=== PATIENT | male | born 1985 | race Two or more races ===

== ENCOUNTER 2023-04-24 18:15 | Outpatient (REF) | payer MEDICAID, SELFPAY ==
[2023-04-25 10:48] LABS: CT PCR NOT DETECTED (Not Detect.); NG PCR NOT DETECTED (Not Detect.)
== END 2023-04-24 18:16 | disposition home or self-care (01) ==
LOC: HO.HHCLNP 18:15
PROVIDERS: Visit Provider Emergency Medicine
DX: R30.0 Dysuria (principal)
CPT/HCPCS: 0353U; 87086

== ENCOUNTER 2023-06-07 09:47 | Outpatient (REF) | payer MEDICAID, SELFPAY ==
[2023-06-07 12:11] LABS: Cholesterol 115 mg/dL (<200); HDL Cholesterol 29 mg/dL (>40); LDL Cholesterol Calculated 70 mg/dL (<100); Triglycerides 84 mg/dL (<150)
[2023-06-07 12:20] LABS: Estimated Average Glucose 108 mg/dL; Hemoglobin A1c % 5.4 % (<6.0)
[2023-06-07 12:27] LABS: HBS Num1 0.28 mIU/mL (0-7.99); HBc Num1 0.09 S/CO (0.00-0.79); HBsAGNum1 0.49 S/CO (0.00-0.99); HIV AB/AG Nonreactive (Nonreactive); HIV Num 1 0.06 S/CO (0.00-0.99); Hepatitis A Antibody IgM 0.41 Index (0-0.79); Hepatitis B Core Antibody Nonreactive (Nonreactive); Hepatitis B Surface Antigen Negative (Negative); ~HepC Num1 0.13 S/CO (0.00-0.79); ~Hepatitis A Antibody IgM Nonreactive (Nonreactive); ~Hepatitis B Surface Antibody NONREACTIVE (Nonreactive); ~Hepatitis C Antibody Nonreactive (Nonreactive)
[2023-06-08 15:47] LABS: RPR Rapid Plasma Reagin NON-REACTIVE (NON-REACTIVE)
[2023-06-08 22:08] LABS: Trichomonas vag. RNA Ur Male NOT DETECTED (NOT DETECTED)
== END 2023-06-07 09:48 | disposition home or self-care (01) ==
LOC: HO.HHCL 09:47
PROVIDERS: Referring Provider Emergency Medicine; Visit Provider Nurse Practitioner
DX: E66.9 Obesity, unspecified (principal); R30.0 Dysuria; Z11.3 Encounter for screening for infections with a predominantly sexual mode of transmission
CPT/HCPCS: 36415; 80061; 83036; 86592; 86704; 86706; 86709; 86803; 87340; 87389; 87661

== ENCOUNTER 2023-07-11 13:03 | Outpatient (AMB) | payer MEDICAID, SELFPAY ==
--- NOTE | 2023-07-11 13:42 | A.OFFVIS_ITS ---
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 He was referred here for abnormal heart sounds. He has no cardiovascular symptoms. He does not exercise regularly but is busy doing hard work and taking care of his family. He is never any prior cardiovascular issues. Has never had any prior murmurs to his recollection. He currently has no ongoing chronic medical issues. Currently does not take any medications. [facility], [facility] Family History Father No problems noted. Mother No problems noted. Social History Patient Tobacco Use Status: Never used Tobacco Review of Systems Const Denies chills, Denies daytime sleepiness, Denies fatigue, Denies fever(s), Denies frequent falls, Denies poor appetite, Denies snoring, Denies stops breathing during sleep, Denies weakness, Denies weight gain and Denies weight loss Eyes Denies loss of vision ENT Denies dizziness and Denies hearing loss Card Denies chest pain, Denies claudication, Denies leg edema, Denies lightheadedness, Denies palpitations, Denies dyspnea, Denies dyspnea on exertion and Denies orthopnea Resp Denies cough, Denies excessive phlegm production, Denies dyspnea, Denies dyspnea on exertion, Denies snoring and Denies wheezing GI Denies abdominal pain, Denies hematochezia, Denies change in bowel habits, Denies nausea and Denies vomiting Denies dysuria and Denies urinary frequency Musc Denies arthralgias, Denies muscle weakness, Denies numbness and Denies other (frequent falls) Skin/Breast Denies nail changes and Denies rash Neuro Denies Abnormal speech present, Denies dizziness, Denies frequent falls, Denies loss of vision, Denies memory loss, Denies numbness and Denies weakness Psych Denies depression and Denies memory loss Endo Denies fatigue and Denies palpitations Rodrigo/Lymph Reports easy bruising and Reports other (anemia) Aller/Immun Denies wheezing Physical Exam Vital Signs: Last Vital Signs Pulse 88 07/11/23 13:50 BP 122/80 07/11/23 13:50 BMI result Body Mass Index 29.2 Const General: cooperative, comfortable, no acute distress, alert and awake Nutritional Appearance: average body habitus Orientation/consciousness: patient oriented x3 Limitations: no limitations HEENT Head: Yes normocephalic Neck Neck: Yes trachea midline, Yes supple and Yes no JVD Resp Effort & Inspection: normal respiratory effort Auscultation: clear to auscultation bilaterally Cardio Jugular venous distension: no JVD Palpation: normal PMI Rate: regular rate Rhythm: regular rhythm Heart sounds: S1 normal heart sound present, S2 normal heart sound present, no click, no gallops, no murmurs and no rubs GI Auscultation: normal bowel sounds Skin General skin exam: no rashes or lesions noted Neuro General: patient oriented x3 and no focal motor deficits Speech: No Abnormal speech present Extrem General: Yes no clubbing, cyanosis or edema Office Procedures EKG Details: EKG shows normal sinus rhythm normal EKG 35035-Riyofkegubgstdoga, Complete Assessment & Plan Assessment & Plan (1) Abnormal heart sounds: Code(s): R01.2 - Other cardiac sounds Plan: Completely asymptomatic young man with high workload with normal EKG was thought to have abnormal heart tones. On physical exam today I do not hear any significant abnormality. At this point time I do not think any further workup is indicated at this point time. I discussed with the patient about benign c ardiac exam. He was quite happy to hear that. If there any symptoms in future can pursue echocardiogram. Will follow up if need be Coding Level of Care Code New Pt Level 3 (25487) Diagnoses Abnormal heart sounds R01.2 CPT Codes EKG - CPT: 12499-Ngvzaksmanfsnkkbo, Complete ([id number])
[2023-07-11 13:50] VITALS: BP 122/80; PULSE 88; BMI 29.2
== END 2023-07-11 14:11 | disposition home or self-care (01) ==
PROVIDERS: PCP Emergency Medicine; Referring Provider Emergency Medicine; Visit Provider Internal Medicine Cardiovascular Disease
DX: R01.2 Other cardiac sounds (principal)
CPT/HCPCS: 93010; 99203

== ENCOUNTER → 2023-07-11 13:03 | Outpatient (BNVA) | payer MEDICAID, SELFPAY | PROVIDERS: PCP Emergency Medicine; Visit Provider Internal Medicine Cardiovascular Disease | DX: R01.2 Other cardiac sounds (principal) | CPT/HCPCS: 93005; 99202 ==

== ENCOUNTER 2023-10-11 09:50 | Outpatient (REF) | payer MEDICAID, SELFPAY ==
[2023-10-11 11:47] LABS: Estimated Average Glucose 114 mg/dL; Hemoglobin A1c % 5.6 % (<6.0)
[2023-10-11 12:29] LABS: Anion Gap 11 (12-20); Blood Urea Nitrogen 12 mg/dL (9-16); Calcium 9.2 mg/dL (8.4-10.2); Carbon Dioxide 26 mmol/L (22-29); Chloride 106 mmol/L (96-108); Cholesterol 152 mg/dL (<200); Estimated Glomerular Filt Rate > 60; Glucose Random 104 mg/dL (60-115); HDL Cholesterol 40 mg/dL (>40); LDL Cholesterol Calculated 97 mg/dL (<100); Potassium 4.1 mmol/L (3.3-5.1); Sodium 139 mmol/L (135-145); Triglycerides 78 mg/dL (<150)
[2023-10-11 12:46] LABS: TSH reflex Free T4 0.58 uIU/mL (0.32-4.0)
== END 2023-10-11 09:51 | disposition home or self-care (01) ==
LOC: HO.HHCL 09:50
PROVIDERS: Visit Provider Nurse Practitioner
DX: E66.9 Obesity, unspecified (principal)
CPT/HCPCS: 36415; 80048; 80061; 83036; 84443

== ENCOUNTER 2024-06-02 18:04 | Emergency (ER) | payer MEDICAID, SELFPAY ==
[2024-06-02 18:19] VITALS: BP 142/83; PULSE 80; RESP 19; TEMP 36.6; O2SAT 99; BMI 30.6
--- NOTE | 2024-06-02 18:22 | ED_ITS ---
HPI - Ear Problem General Chief complaint: Ear Problems Stated complaint: Right ear and neck pain Time Seen by Provider: 06/02/24 18:22 Source: patient Mode of arrival: ambulatory Limitations: no limitations History of Present Illness ED Provider: terri PADILLA Narrative: Patient is a 38-year-old male presenting to the ED with complaint of right ear pain for the past 3 days. Denies fevers. Denies discharge or drainage. Denies other symptoms. Complaint: ear pain Location: right ear Duration: constant Severity: severe Relieving factors: nothing Treatment prior to arrival: none Related Data Previous Rx's ?Medication ?Instructions ?Recorded amoxicillin 875 mg tablet 875 mg PO BID #14 tabs 06/02/24 Allergies Allergy/AdvReac Type Severity Reaction Status Date / Time No Known Allergies Allergy Verified 06/02/24 18:20 Review of Systems Review of Systems: As per HPI Yes all other systems are reviewed and are negative Constitutional: Constitutional: Reports as per HPI [facility] Family History Family History Father No problems noted. Mother No problems noted. Social History Social History Patient Tobacco Use Status: Never used Tobacco Physical Exam Vital Signs: Vital Signs: Last Vital Signs Temp 98 F 06/02/24 18:19 Pulse 80 06/02/24 18:19 Resp 19 06/02/24 18:19 BP 142/83 H 06/02/24 18:19 Pulse Ox 99 06/02/24 18:19 O2 Del Method Room Air 06/02/24 18:19 BMI result Body Mass Index 30.6 Vital signs have been reviewed and appear to be correct. Blood pressure normal. Heart rate normal. Respiratory rate normal. Temperature normal. Oxygen satur ation normal. Const: General: cooperative, healthy appearing and no acute distress Orientation/consciousness: oriented to person, oriented to place, oriented to time and patient oriented x3 Limitations: no limitations HEENT: Head: Yes normocephalic and Yes atraumatic Ears: external ears normal, mastoids normal bilaterally, no periauricular adenopathy and TM abnormal bulging on the right, erythematous bilateral and with fluid behind the TM on the right General nose exam: Normal external nose present Face and sinus: Yes face symmetric Mouth: oropharynx normal and moist mucous membranes Throat: Yes uvula midline Eyes: Pupils: Equal, round and reactive pupils present Neck: Neck: Yes normal visual inspection and Yes supple Resp: Effort & Inspection: normal respiratory effort and able to speak in complete sentences Auscultation: clear to auscultation bilaterally Cardio: Rate: regular rate Rhythm: regular rhythm Heart sounds: S1 normal heart sound present and S2 normal heart sound present GI: Palpation (GI): Soft to palpation and nontender Auscultation: normoactive bowel sounds : General: Yes no CVA tenderness Back/Spine/Pelvis: Back: no CVA tenderness Skin: General skin exam: elasticity normal and turgor normal Neuro: General: oriented to person, oriented to place, oriented to time, patient oriented x3, moves all extremities, no focal motor deficits and CN's II- XI intact bilaterally Cranial nerves: Yes Equal, round and reactive pupils present Cognition (Neuro): normal cognition Extrem: General: Yes full ROM, Yes no pedal edema and Yes no calf tenderness Psych: Mental Status: mental status grossly normal Affect: normal affect Thought process: Normal thought process present Medical Decision Making Medical Decision Making [facility] Narrative: Patient is a 38-year-old male presenting to the ED with complaint of right ear pain for the past 3 days. On exam patient is awake, A+Ox3, VS WNL, afebrile, normal neurological exam without focal deficits, physical exam findings as above. Given reported symptoms and physical exam findings, initial differential includes but is not limited to otitis media, otitis externa, cerumen impaction. Physical exam findings consistent with AOM, will treat with amoxicillin. Return precautions discussed. Patient verbalized understanding of and agreement with plan. Differential Diagnosis Differential Diagnoses: The differential diagnosis associated with the presentation includes As per [facility] External Record Review External record reviewed: Inpatient record, Office record and Outpatient record Prescription Management I considered prescription management with: Antibiotic Discharge Plan Discharge Clinical Impression: Otitis media Patient Disposition: Home, Self-Care Instructions: Ear Infection (ED) Additional Instructions: You were evaluated in the emergency department today for ear pain. Your evaluation suggests that your pain is due to an ear infection. Please take your prescribed antibiotics as directed for the full course of the medication. Please follow up with your primary care provider within two days. Return to the emergency department if you experience hearing loss, discharge from your ear, headaches, fevers, recurrent vomiting, or any other concerning symptoms. Prescriptions: New amoxicillin 875 mg tablet 875 mg PO BID Qty: 14 0RF Print Language: Amharic
[2024-06-02 18:26] VITALS: BP 142/83; PULSE 80; RESP 19; TEMP 36.6; O2SAT 99
== END 2024-06-02 18:27 | disposition home or self-care (01) ==
PROVIDERS: Emergency Provider Emergency Medicine Emergency Medical Services
DX: H66.91 Otitis media, unspecified, right ear (principal); H92.01 Otalgia, right ear; M54.2 Cervicalgia
CPT/HCPCS: 99282

== ENCOUNTER 2024-11-19 09:31 | Outpatient (REF) | payer MEDICAID, SELFPAY ==
--- OUTSIDE RECORDS SUMMARY | 2024-11-19 10:30 | XMS_ITS | Encounter Summary ---
Author Organization [employer] Address [address] [place] [address] Care Team Providers Care Southeast Regional Sales Manager Name Role Phone Maria Victoria Sprague NP Primary Care Provider [phone] Encounter Details Date Type Department Care Team ([facility] st Contact Info) Description 04/24/2023 9:40 AM EST Office Visit [facility] [address] [place] [address] Greyson Slaughter MD [address] [place] [address] Rash (Primary Dx); Dysuria; Heart sounds, abnormal; Elevated blood pressure reading in office without diagnosis of hypertension Social History Tobacco Use Types Packs/Day Years Used Date Smoking Tobacco: Never Passive Smoke Exposure: Never Smokeless Tobacco: Never Tobacco Cessation:Counseling Given: Not Answered Depression Answer Date Recorded Patient Health Questionnaire-9 Score 0 06/07/2023 Patient Health Questionnaire-9 Score 0 06/07/2023 Last PHQ-9: Questionnaire Data Not on file 1 08/08/2022 Housing Stability Answer Date Recorded What is your housing situation today? I have eitan castillo 05/29/[address] you li ve. Do you have problems with any of the following? None of the above 05/29/2023 Food Insecurity Answer Date Recorded Within the past 12 months, y ou worried that your food would run out before you got money to buy more: Never True 05/29/2023 Within the past 12 months,th e food you bought just didn't last and you didn't have enough money to get more: Never True Transportation Answer Date Recorded In the past 12 months, has l ack of transportation kept you from medical appts, meetings, work or from getting things needed for daily living? No 05/29/2023 Utilities Answer Date Recorded In the past 12 months, has t he electric, gas, oil or water company threatened to shut off services in your home? No 05/29/2023 Depression Answer Date Recorded Patient Health Questionnaire-2 Score 0 06/07/2023 Sex and Gender Information Value Date Recorded Sex Assigned at Male 04/24/2023 9:34 AM EST Legal Sex Male 1:40 PM EST Gender Identity Male 04/24/2023 9:34 AM EST Sexual Orientation Straight 04/24/2023 9: 34 AM EST documented as of this encounter Last Filed Vital Signs Vital Sign Reading Time Taken Comments Blood Pressure 149/89 04/24/2023 10:14 AM EST Pulse 74 04/24/2023 10:14 AM EST Temperature 36.8 ??C (98.3 ??F) 04/24/2023 10:[address] Respiratory Rate 20 04/24/2023 10:14 AM EST Oxygen Saturation 99% 04/24/2023 10:14 AM EST Inhaled Oxygen Concentration - - Weight 112 kg (247 lb 3.2 oz) 04/24/2023 10:14 A M EST Height 193 cm (6' 4 ) 04/24/2023 10:14 AM EST Body Mass Index 30.09 04/24/2023 10:14 AM EST documented in this encounter Functional Status * Over the past 2 weeks, how often have you been bothered by any of the following problems? Question Answer Date of Assessment Author Patient Health Questionnaire-2 Score 0 05/13 9:12 AM Zacarias Macdonald [place] * Over the last 2 weeks, how often have you been bothered by any of the following problems? Question Answer Date of Assessment Author Feeling nervous, anxious, or on edge 0 05/13 9:12 AM Zacarias Macdonald MA Not being able to stop or co ntrol worrying 0 06/07/2023 9:12 AM Zacarias Macdonald M A Worrying too much about diff erent things 0 06/07/2023 9:12 AM Zacarias Macdonald M A Trouble relaxing 0 06/07/2023 9:12 AM Zacarias Contreras MA Being so restless that it is hard to sit still 0 06/07/2023 9:12 AM Zacarias Macdonald M A Becoming easily annoyed or irritable 0 05/13 9:12 AM Zacarias Macdonald MA Feeling afraid as if somethi ng awful might happen 0 06/07/2023 9:12 AM Zacarias Macdonald M A DAMIAN-7 Total Score 0 06/07/2023 9:12 AM Zacarias Macdonald MA * Over the past 2 weeks, how often have you been bothered by any of the following problems? Question Answer Date of Assessment Author Little interest or pleasure in doing things Not at all 06/07/2023 9:12 AM Zacarias Macdonald M A Feeling down, depressed, or hopeless Not at all 06/07/2023 9:12 AM Zacarias Macdonald M A Trouble falling or staying asleep, or sleeping too much Not at all 06/07/2023 9:12 AM Zacarias Macdonald MA Feeling tired or having pierre le energy Not at all 06/07/2023 9:12 AM Zacarias Macdonald M A Poor appetite or overeating Not at all 06/07/2023 9: 12 AM Zacarias Macdonald MA Feeling bad about yourself - or that you are a failure or have let yourself or your family down Not at all 06/07/2023 9:12 AM Zacarias Ahumada ra, [place] Trouble concentrating on thi ngs, such as reading the newspaper or watching television Not at all 06/07/2023 9:12 AM Zacarias Macdonald M A Moving or speaking so slowly that other people could have noticed? Or the opposite - being so fidgety or restless that you have been moving around a lot more than usual. Not at all 06/07/2023 9:12 AM Zacarias Macdonald M A Thoughts that you would be better off or hurting yourself in some way Not at all 06/07/2023 9:12 AM Zacarias Macdonald MA Patient Health Questionnaire -9 Score 0 06/07/2023 9:12 AM EST Zacarias Grant M A documented as of this encounter Progress Notes * Greyson Slaughter MD - 04/24/2023 9:40 AM EST Subjective Patient ID: Primitivo Ortez is a 37 y.o. male, new patient. Last saw PCP 10 years ago in [place]. Moved here from [place] 7 years ago. HPI Has 4 month h/o itchy rash on left buttock. No drainage. Denies SOB, swelling, sensation of throat tightness, new medications, soap, shampoo, detergent, or deodorant. Denies tick bite, or known contacts who have a rash. Has been using OTC clotrimazole cream with no improvement. States has similar rash about 10 years ago in [place], resolved with pills and cream. Also has 5 day h/o burning on urination, urgency. Denies fever, chills, urethral discharge, n/v, abdominal or flank pain. Circumcised. Past med hx: neg Past surgical hx: neg Family hx: neg Lives with , 3 y.o. son, 3 month old daughter. Never Smoked No EtOH. No Illicit substances. 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 The following portions of the chart were reviewed this encounter and updated as appropriate: Meds Problems Med Hx Surg Hx Fam Hx Review of Systems Constitutional: Negative for fever. Respiratory: Negative for shortness of breath. Cardiovascular: Negative for chest pain. Gastrointestinal: Negative for abdominal pain. Genitourinary: Positive for dysuria and urgency. Negative for flank pain, hematuria, penile discharge, scrotal swelling and testicular pain. Skin: Positive for rash. Neurological: Negative for headaches. Objective Physical Exam Constitutional: Appearance: Normal appearance. HENT: Right Ear: Tympanic membrane, ear canal and external ear normal. Left Ear: Tympanic membrane, ear canal and external ear normal. Nose: Nose normal. Mouth/Throat: Mouth: Mucous membranes are moist. Pharynx: Oropharynx is clear. Eyes: Conjunctiva/sclera: Conjunctivae normal. Pupils: Pupils are equal, round, and reactive to light. Cardiovascular: Rate and Rhythm: Normal rate and regular rhythm. Heart sounds: S1 normal. No murmur heard. Comments: ?wide splitting of S2 Pulmonary: Effort: Pulmonary effort is normal. Breath sounds: Normal breath sounds. Musculoskeletal: General: Normal range of motion. Cervical back: No tenderness. Skin: Findings: No rash. Comments: Right buttock: several irreg patches of scaly, dry skin, some smaller areas with hyperpigmentation, No redness. Neurological: Mental Status: He is alert. Gait: Gait is intact. Psychiatric: Mood and Affect: Mood normal. Behavior: Behavior normal. Procedures Assessment/Plan Diagnoses and all orders for this visit: Rash ?etioilogy. Prescribed miconazole cream and triamcinolone acetonide 0.1 % cream. Referred ro [facility] Derm/skin Dysuria U/a normal. Urine C&S, CT/GC, tich pending. Will call pt with results. If all neg and he is still symptomatic, will refer to Urology. - Chlamydia/N. Gonorrhoeae RNA, TMA, Urogenitial; Future - Trichomonas vaginalis RNA, Qualitative, TMA, Males; Future - Culture, Urine, Routine - POCT urinalysis dipstick manually resulted Heart sounds, abnormal Referred to Cardiology. Elevated blood pressure reading in office without diagnosis of hypertension Prescribed home BP monitor. Reviewed BP parameters, given written BP log that includes BP parameters, to keep daily. Call if BP readings are elevated. Other orders - miconazole (Micatin) 2 % cream; Apply to affected area 2 times daily - triamcinolone (Kenalog) 0.1 % cream; Apply topically 2 times daily. - Blood Pressure kit; 1 each 2 times daily. documented in this encounter Plan of Treatment Upcoming Encounters Date Type Department Care Team (Late st Contact Info) Description 12/16/2024 3:30 PM EDT Office Visit [facility] [address] [place] [address] Jairon Stuart, DDS [address] [place] [address] 03/31/2025 10:00 AM EDT Office Visit [facility] [address] [place] [address] Yimi Lindo documented as of this encounter Procedures Procedure Name Priority Date/Time Associated Diagnosis Comments TRICHOMONAS BY TMA (MALES) Routine 06/07/2023 9:56 AM EST Dysuria POCT URINALYSIS DIPSTICK Routine 04/24/2023 11:06 AM EST Dysuria CHLAMYDIA/N. GONORRHOEAE RNA, TMA, UROGENITAL Routine 04/24/2023 12:00 AM EST Dysuria CULTURE, URINE, ROUTINE Routine 04/24/2023 12:00 AM EST Dysuria documented in this encounter Results * Trichomonas vaginalis RNA, Qualitative, TMA, Males (06/07/2023 9:56 AM EST) Trichomonas vaginalis RNA Qualitative TMA, Males NOT DETECTED NOT DETECTED [facility] Comment:The analytical perfo rmance characteristics of thisassay have been determined by [employer]. Themodifications have not been cleared or approved bythe FDA. This assay has been validated pursuant to theCLIA regulations and is used for clinical purposes.For additional information, please refer tohttp://education.BringMeTheNews/faq/Trichomonastma(This link is being provided for informational/educational purposes only.)THIS TEST WAS PERFORMED AT:[facility] [place] [phone] COKER MD 06/07/2023 9:56 AM EST 06/07/2023 11:21 AM EST us Greyson Slaughter MD LAB URINE ORDERABLES Final Resul t [facility] [address] [place] [phone] * POCT urinalysis dipstick manually resulted (04/24/2023 11:06 AM EST) Color, UA Yellow Clarity, UA Clear Glucose, UA Negative Bilirubin, UA Negative Ketones, UA Negative Spec Grav, UA 1.030 Blood, UA Negative Negative, None Detected pH, UA 5.5 Protein, UA Trace Urobilinogen, UA 0.2 Leukocytes, UA Negative Negative, Rare, Trace Nitrite, UA Negative Negative, None Detected Appearance, UA Clear Urine 04/24/2023 11:0 6 AM EST us Greyson Slaughter MD POINT OF CARE TEST ENTER/EDIT OR DERABLES Final Result * Culture, Urine, Routine (04/24/2023 12:00 AM EST) Urine Urine specimen obtained by clean catch procedure / Unknown 04/24/2023 04/24/2023 Comment:UACC Narrative [facility] - 04/26/2023 9:21 AM EST Urine Culture No growth. Specimen Source: Urine clean catch us Greyson Slaughter MD LAB MICROBIOLOGY - GENERAL ORDER HELEN Final Result [facility] [address] [place] [phone] * Chlamydia/N. Gonorrhoeae RNA, TMA, Urogenitial (04/24/2023 12:00 AM EST) CT PCR NOT DETECTED Not Detect. [facility] Comment:A not detected test result does not exclude the possibilityof infection because test results can be affected byimproper specimen collection, concurrent antibiotic therapy,or the number of organisms in the specimen which may bebelow the sensitivity of the test. As with many diagnostictests, results from the Xpert CT/NG assay should beinterpreted in conjunction with other laboratory andclinical data available to the clinician.Xpert CT/NG performance has not been evaluated in patientsless than 14 years of age. The assay should not be used forthe evaluationof suspected sexual abuse or for other medico-legalindications. Additional testing is recommended in anycircumstance when false positive or false negative resultscould lead to adverse medical, social or psychologicalconsequences. NG PCR NOT DETECTED Not Detect. [facility] Comment:A not detected test result does not exclude the possibilityof infection because test results can be affected byimproper specimen collection, concurrent antibiotic therapy,or the number of organisms in the specimen which may bebelow the sensitivity of the test. As with many diagnostictests, results from the Xpert CT/NG assay should beinterpreted in conjunction with other laboratory andclinical data available to the clinician.Xpert CT/NG performance has not been evaluated in patientsless than 14 years of age. The assay should not be used forthe evaluationof suspected sexual abuse or for other medico-legalindications. Additional testing is recommended in anycircumstance when false positive or false negative resultscould lead to adverse medical, social or psychologicalconsequences. Urine, Random 04/24/2023 04/24/2023 Narrative [facility] - 04/25/2023 10:48 AM EST Urine us Greyson Slaughter MD LAB MICROBIOLOGY - GENERAL ORDER HELEN Final Result [facility] [address] [place] [phone] documented in this encounter Visit Diagnoses Diagnosis Rash- Primary Rash and other nonspecific skin eruption Dysuria Heart sounds, abnormal Other abnormal heart sounds Elevated blood pressure reading in office without diagnosis of hypertension documented in this encounter Care Teams Southeast Regional Sales Manager Relationship Specialty Start Date End Date Maria Victoria Sprague NP [address] [place] [phone] PCP - General Family Medicine 06/07/23 documented as of this encounter
[2024-11-19 11:20] LABS: MANUAL DIFF FLAG NO
[2024-11-19 11:25] LABS: Basophils Percent Auto 0.4 % (0-2); Eosinophils Absolute Auto 0.2 X10*3/uL (0.0-0.4); Hematocrit 45.8 % (42.0-52.0); Hemoglobin 15.1 g/dl (14.0-18.0); Imm Gran Abs Auto 0.02 X10*3/uL (0.00-0.03); Imm Gran Pct Auto 0.4 % (0.0-0.4); Lymphocytes Absolute Auto 1.7 X10*3/uL (1.2-4.9); Lymphocytes Percent Auto 31.1 % (20-40); Mean Corpuscular Hemoglobin 28.9 pg (27.0-33.0); Mean Corpuscular Volume 87.7 fL (80.0-98.0); Mean Platelet Volume 11.8 fL (9.4-12.4); Monocytes Absolute Auto 0.4 X10*3/uL (0.1-1.2); Monocytes Percent Auto 7.5 % (2-11); Neutrophils Percent Auto 56.6 % (45-73); Platelet Count 124 X10*3/uL (160-400); Red Blood Count 5.22 X10*6/uL (4.60-5.80); Red Cell Distribution Width 12.1 % (11.0-16.0); White Blood Count 5.3 X10*3/uL (4.8-10.8)
[2024-11-19 11:34] LABS: Estimated Average Glucose 114 mg/dL; Hemoglobin A1C 149.8256 umol/L; Hemoglobin A1c % 5.6 % (<6.0)
[2024-11-19 11:49] LABS: Anion Gap 8 (12-20); Blood Urea Nitrogen 12 mg/dL (9-16); Calcium 9.1 mg/dL (8.4-10.2); Carbon Dioxide 30 mmol/L (22-29); Chloride 106 mmol/L (96-108); Estimated Glomerular Filt Rate > 60; Glucose Random 106 mg/dL (60-115); Potassium 4.5 mmol/L (3.3-5.1); Sodium 139 mmol/L (135-145)
[2024-11-19 12:22] LABS: Vitamin B12 992 pg/mL (200-900)
[2024-11-22 09:34] LABS: RPR Rapid Plasma Reagin NON-REACTIVE (NON-REACTIVE)
== END 2024-11-19 09:32 | disposition home or self-care (01) ==
LOC: HO.HHCL 09:31
PROVIDERS: Visit Provider Emergency Medicine
DX: R21 Rash and other nonspecific skin eruption (principal)
CPT/HCPCS: 36415; 80048; 82607; 83036; 85025; 86592

== ENCOUNTER 2024-12-14 11:02 | Emergency (ER) | payer MEDICAID, SELFPAY ==
--- NOTE | ~2024-12-14 | CT_ITS ---
CLINICAL HISTORY: RLQ tenderness CT abdomen and pelvis with contrast Comparison: None provided Findings: The lung bases are clear. The liver, gallbladder, spleen, splenule, adrenal glands and pancreas are unremarkable. Kidneys, ureters and bladder are within normal limits. Small benign renal cysts are present. The appendix is normal. No bowel obstruction, free air, free fluid or abscess. Mild fecal retention. No acute osseous finding. Impression: Normal appendix. No definite acute process. This document has been electronically signed by: David Styles MD on 12/14/2024 13:45:43
[2024-12-14 11:15] VITALS: BP 129/80; PULSE 73; RESP 18; TEMP 36.8; O2SAT 99
[2024-12-14 11:23] VITALS: BP 108/68; PULSE 82; RESP 16; TEMP 36.8; O2SAT 97
[2024-12-14 11:39] VITALS: BP 103/71; PULSE 76; RESP 16; TEMP 36.6; O2SAT 98; BMI 30.2
--- NOTE | 2024-12-14 11:59 | ED_ITS ---
HPI - General Adult General Chief complaint: Abdominal Pain Stated complaint: abd pain Time Seen by Provider: 12/14/24 11:57 Source: patient, RN notes reviewed and old records reviewed Mode of arrival: ambulatory Limitations: no limitations History of Present Illness ED Provider: Eamon PADILLA narrative: Patient is a 39-year-old male presenting to the emergency department with complaint of generalized abdominal pain. States that on Monday he developed diarrhea which resolved after using Pepto-Bismol. Denies any vomiting but does report some nausea. Denies fevers, chills, body aches, known sick contacts. Denies hematemesis, hematochezia or melena. Denies dysuria, frequency, hematuria or other urinary symptoms. Has not eaten since 3pm yesterday. Declining pain or nausea medication on initial assessment. MD complaint: abdominal pain Onset (ago): day(s) Related Data Previous Rx's ?Medication ?Instructions ?Recorded amoxicillin 875 mg tablet 875 mg PO BID #14 tabs 06/02 ondansetron 4 mg disintegrating 4 mg PO Q8H PRN nausea and 12/14/24 tablet vomiting #10 tabs Allergies Allergy/AdvReac Type Severity Reaction Status Date / Time No Known Allergies Allergy Verified 12/14/24 11:17 Review of Systems 2 Review of Systems: As per HPI Yes all other systems are reviewed and are negative [facility] Family History Family History Father No problems noted. Mother No problems noted. Social History Social History Patient Tobacco Use Status: Never used Tobacco Smoked in Last 30 Days: No Use of substances other than those prescribed or required for medical reasons: No Advance Directives: No Advance Directives Information Provided: No Physical Exam ED Vital Signs: Vital Signs - 24 hr 12/14/24 11:15 12/14/24 11:23 12/14/24 11:39 Temperature 98.3 F 98.2 F 97.8 F Pulse Rate 73 82 76 Respiratory Rate 18 16 16 Blood Pressure 129/80 108/68 103/71 Pulse Oximetry 99 97 98 Oxygen Delivery Method Room Air Room Air Room Air BMI result Body Mass Index 30.2 Medications Administered Discontinued Medications Generic Name Dose Route Start Last Admin Trade Name Freq PRN Reason Stop Dose Admin Iohexol 85 ml 12/14/24 12:54 12/14/24 12:54 Iohexol 350 Mg/Ml 100 Ml Infus..Btl IV 12/14/24 12:55 85 ml ONCE ONE Administration Medical Decision Making Medical Decision Making [facility] Narrative: Patient is a 39-year-old male presenting to the emergency department with complaint of generalized abdominal pain. On exam patient is awake, A+Ox3, VS WNL, afebrile, normal neurological exam without focal deficits, physical exam findings as above. Given reported symptoms and physical exam findings, initial differential includes but is not limited to gastroenteritis, appendicitis, electrolyte abnormality, UTI. Labs unremarkable. UA is without evidence of infection. CT A/P notable for no appendicitis, obstruction, abscess. My interpretation is in agreement with the radiologist's interpretation. Results discussed with patient and all questions answered. Symptoms likely due to inflammation from recent gastroenteritis. Will send prescription for zofran. Advised follow up with PCP. Return precautions discussed. Patient verbalized understanding of and agreement with plan. Differential Diagnosis Differential Diagnoses: The differential diagnosis associated with the presentation includes as per [facility] Admission/Observation Consideration of admission/observation: Escalation of care including admission/observation considered Patient would have been admitted to the hospital had their work up had any findings where hospital admission was appropriate and their clinical presentation warranted hospital admission. Lab Data [facility] Lab Attestation statement: I reviewed the patient's lab results. as per [facility] 12/14/24 12:25 12/14/24 12:25 Labs: Lab Results 12/14/24 Range/Units 12:25 WBC 5.2 (4.8-10.8) X10*3/uL RBC 5.20 (4.60-5.80) X10*6/uL Hgb 15.4 (14.0-18.0) g/dl Hct 44.3 (42.0-52.0) % MCV 85.2 (80.0-98.0) fL MCH 29.6 (27.0-33.0) pg MCHC 34.8 (31.0-36.0) g/dl RDW 12.2 (11.0-16.0) % Plt Count 123 L (160-400) X10*3/uL MPV 11.8 (9.4-12.4) fL Immature Gran % (Auto) 0.2 (0.0-0.4) % Neut % (Auto) 63.8 (45-73) % Lymph % (Auto) 28.5 (20-40) % [place] % (Auto) 5.4 (2-11) % Eos % (Auto) 1.7 (0-4) % Baso % (Auto) 0.4 (0-2) % Lymph # (Auto) 1.5 (1.2-4.9) X10*3/uL [place] # (Auto) 0.3 (0.1-1.2) X10*3/uL Eos # (Auto) 0.1 (0.0-0.4) X10*3/uL Baso # (Auto) 0.0 (0.0-0.2) X10*3/uL Abs Immat Gran (auto) 0.01 (0.00-0.03) X10*3/uL Absolute Neuts (auto) 3.3 (2.0-8.3) x10*3/uL Absolute Nucleated RBC 0.000 (0.0-0.012) X10*3/uL Nucleated RBC % (auto) 0.0 (0.0-0.2) /100WBC Sodium 141 (135-145) mmol/L Potassium 4.3 (3.3-5.1) mmol/L Chloride 108 (96-108) mmol/L Carbon Dioxide 25 (22-29) mmol/L Anion Gap 12 (12-20) BUN 11 (9-16) mg/dL Creatinine 0.84 (0.5-1.4) mg/dL Estim Creat Clear Calc 161.0 Estimated GFR > 60 Random Glucose 99 (60-115) mg/dL Calcium 9.0 (8.4-10.2) mg/dL Lipase 15 (8-78) U/L Urine Color Yellow Urine Appearance Clear Urine pH 5.5 (5.0-9.0) Ur Specific [place] 1.025 (1.005-1.025) Urine Protein Negative (Neg-Trace) mg/dL Urine Glucose (UA) Negative (Negative) mg/dL Urine Ketones Trace (Negative) mg/dL Urine Blood Negative (Negative) Urine Nitrite Negative (Negative) Ur Leukocyte Esterase Negative (Negative) Independent Interpretation I performed an independent interpretation of an: CT Scan Interpretation: CT A/P is without evidence of appendicitis, obstruction, abscess. Radiology Impression Discussion of test interpretation with radiology: I have reviewed the radiologist's reading. Radiologist Impression: CT abdomen and pelvis with contrast Comparison: None provided Findings: The lung bases are clear. The liver, gallbladder, spleen, splenule, adrenal glands and pancreas are unremarkable. Kidneys, ureters and bladder are within normal limits. Small benign renal cysts are present. The appendix is normal. No bowel obstruction, free air, free fluid or abscess. Mild fecal retention. No acute osseous finding. Impression: Normal appendix. No definite acute process. External Record Review External record reviewed: Inpatient record, Office record and Outpatient record Prescription Management I considered prescription management with: Other Discharge Plan Discharge Clinical Impression: Abdominal pain, Gastroenteritis Patient Disposition: Home, Self-Care Instructions: Gastroenteritis (DC), Acute Diarrhea (ED), Abdominal Pain (ED) Additional Instructions: You have been evaluated in the emergency department today for abdominal pain, nausea, and diarrhea. Your evaluation suggests that your symptoms are most likely due to a viral illness which will improve on it's own with rest and fluids. Remember to drink plenty of fluids at home. You are being prescribed ondansetron which you can use as per the prescription instructions for nausea. Please follow up with your primary care provider within two days. Return to the emergency department if you experience worsening or uncontrolled pain, inability to tolerate fluids by mouth, difficulty breathing, fevers 100.4? F or greater, recurrent vomiting, or any other concerning symptoms. Prescriptions: New ondansetron 4 mg tablet,disintegrating 4 mg PO Q8H PRN (Reason: nausea and vomiting) Qty: 10 0RF No Action amoxicillin 875 mg tablet 875 mg PO BID Qty: 14 0RF Print Language: Arabic
[2024-12-14 12:30] LABS: MANUAL DIFF FLAG NO
[2024-12-14 12:31] LABS: Hematocrit 44.3 % (42.0-52.0); Hemoglobin 15.4 g/dl (14.0-18.0); Imm Gran Abs Auto 0.01 X10*3/uL (0.00-0.03); Imm Gran Pct Auto 0.2 % (0.0-0.4); Lymphocytes Absolute Auto 1.5 X10*3/uL (1.2-4.9); Mean Corpuscular HGB Conc 34.8 g/dl (31.0-36.0); Mean Corpuscular Hemoglobin 29.6 pg (27.0-33.0); Mean Corpuscular Volume 85.2 fL (80.0-98.0); NRBC Abs Auto 0.000 X10*3/uL (0.0-0.012); NRBC Pct Auto 0.0 /100WBC (0.0-0.2); Platelet Count 123 X10*3/uL (160-400); Red Blood Count 5.20 X10*6/uL (4.60-5.80); White Blood Count 5.2 X10*3/uL (4.8-10.8)
[2024-12-14 12:32] LABS: Appearance Urine Clear; Glucose Urine UA Negative (Negative); PH 5.5 (5.0-9.0); Specific Gravity - Urine 1.025 (1.005-1.025)
[2024-12-14 12:43] LABS: Anion Gap 12 (12-20); Blood Urea Nitrogen 11 mg/dL (9-16); Calcium 9.0 mg/dL (8.4-10.2); Carbon Dioxide 25 mmol/L (22-29); Chloride 108 mmol/L (96-108); Creatinine Clr Calc Pharmacy 161.0; Estimated Glomerular Filt Rate > 60; Lipase 15 U/L (8-78); Potassium 4.3 mmol/L (3.3-5.1); Sodium 141 mmol/L (135-145)
--- NOTE | 2024-12-14 12:47 | PC.NURSE ---
This nurse obtained 20G IV access in left forearm, labs obtained UA specimen collected.
[2024-12-14] MEDS: iohexoL 350 MG/ML 100 ML INFUS..BTL 85 ML IV (12:54)
[2024-12-14 14:17] VITALS: BP 103/71; PULSE 76; RESP 16; TEMP 36.6; O2SAT 98
== END 2024-12-14 14:18 | disposition home or self-care (01) ==
PROVIDERS: Emergency Provider Emergency Medicine
DX: R10.9 Unspecified abdominal pain (principal); K52.9 Noninfective gastroenteritis and colitis, unspecified
CPT/HCPCS: 36415; 74177; 80048; 81003; 83690; 85025; 99284; Q9967

== ENCOUNTER → 2024-12-14 12:03 | Outpatient (BNV) | payer MEDICAID, SELFPAY | PROVIDERS: Emergency Provider Emergency Medicine; Visit Provider Radiology Vascular & Interventional Radiology | DX: R10.813 Right lower quadrant abdominal tenderness (principal) | CPT/HCPCS: 74177 ==

== ENCOUNTER 2025-02-06 09:27 | Outpatient (REF) | payer OTHER, MEDICAID, SELFPAY ==
--- NOTE | ~2025-02-06 | XR_ITS ---
EXAMINATION: XR CHEST CLINICAL INFORMATION: COUGH COMPARISON: None available. TECHNIQUE: 2 views of the chest were obtained. FINDINGS: The cardiac, hilar, and mediastinal contours are normal. The lungs are clear bilaterally. There is no pneumothorax or pleural effusion. There is no focal osseous or soft tissue abnormality. XR/XR chest 2V IMPRESSION: Normal chest. Electronically signed by: Eloy Coleman MD 02/06/2025 09:44 AM EDT
--- OUTSIDE RECORDS SUMMARY | 2025-02-06 09:00 | XMS_ITS | Encounter Summary ---
Author Organization [employer] Address [address] [place] [address] Care Team Providers Care Residential Real Estate Agent Name Role Phone Maria Victoria Sprague NP Primary Care Provider [phone] Reason for Visit * Reason Comments Cough Encounter Details Date Type Department Care Team (Latest Contact Info) Description 02/06/2025 9:00 AM EDT Office Visit [facility] [address] [place] [address] Dermatophytosis (Primary Dx); Cough, unspecified type Social History Tobacco Use Types Packs/Day Years Used Date Smoking Tobacco: Never Passive Smoke Exposure: Never Smokeless Tobacco: Never Alcohol Use Standard Drinks/Week Comments Never 0 (1 standard drink = 0.6 oz pur e alcohol) Depression Answer Date Recorded Patient Health Questionnaire-9 [...] Sign Reading Time Taken Comments Blood Pressure 122/77 02/06/2025 9:06 AM EDT Pulse 78 02/06/2025 9:06 AM EDT Temperature 36.7 C (98.1 F) 02/06/2025 9:06 AM EDT Respiratory Rate 18 02/06/2025 9:06 AM EDT Oxygen Saturation 99% 02/06/2025 9:06 AM EDT Inhaled Oxygen Concentration - - Weight 112 kg (248 lb) 02/06/2025 9:06 AM EDT Height 190.5 cm (6' 3 ) 02/06/2025 9:06 AM EDT Body Mass Index 31 02/06/2025 9:06 AM EDT documented in this encounter Plan of Treatment Upcoming Encounters Date Type Department Care Team (Late st Contact Info) Description 03/31/2025 10:00 AM EDT Office Visit [facility] [address] [place] [address] Yimi Lindo 04/28/2025 9:00 AM EST Office Visit [facility] [address] [place] [address] Maria Victoria Sprague NP [address] [place] [address] documented as of this encounter Procedures Procedure Name Priority Date/Time Associated Diagnosis Comments POCT INFLUENZA B (ID NOW RAPID MOLECULAR) Routine 02/06/2025 9:19 AM EDT Cough, unspecified type POCT INFLUENZA A (ID NOW RAPID MOLECULAR) Routine 02/06/2025 9:18 AM EDT Cough, unspecified type POC DIAZ ID NOW STREP A Routine 02/06/2025 9:10 AM EDT Cough, unspecified type POCT RAPID COVID ANTIGEN Routine 02/06/2025 9:09 AM EDT Cough, unspecified type XR CHEST 2 VIEWS Routine 02/06/2025 8:50 AM EDT Cough, unspecified type documented in this encounter Results * POCT Rapid Influenza B DIAZ ID NOW (02/06/2025 9:19 AM EDT) Pathologist [facility] Influenza B Negative Negative, Indeterminate [facility] QC Media Lot # [id number] [facility] Lot# Expiration Date [facility] Swab 02/06/2025 9:19 AM EDT Jose Pham MD POINT OF CARE TEST ENTER/EDIT OR DERABLES Final Result Performing Organization Address [facility]/ZIP Co de Phone Number [facility] [address] [place] [phone] * POCT Rapid Influenza A DIAZ ID NOW (02/06/2025 9:18 AM EDT) Influenza A Negative Negative, Indeterminate [facility] QC Media Lot # [id number] [facility] Lot# Expiration Date [facility] Swab 02/06/2025 9:18 AM EDT us Jose Pham MD POINT OF CARE TEST ENTER/EDIT OR DERABLES Final Result Performing Organization Address [facility]/ZIP Co de Phone Number [facility] [address] [place] [phone] * POCT Rapid Strep A DIAZ ID NOW (02/06/2025 9:10 AM EDT) Rapid Strep A Screen Negative Negative, None Detected QC Media Lot # [id number] Lot# Expiration Date 12,526 Swab 02/06/2025 9:10 AM EDT Jose Pham MD POINT OF CARE TEST ENTER/EDIT OR DERABLES Final Result * POCT Rapid Covid-19 BinaxNOW (02/06/2025 9:09 AM EDT) [facility] Rapid COVID Ag Negative QC Media Lot # [id number] Lot# Expiration Date 8,226 Swab 02/06/2025 9:09 AM EDT Jose Pham MD POINT OF CARE TEST ENTER/EDIT OR DERABLES Final Result * XR Chest 2 Views (02/06/2025 8:50 AM EDT) Anatomical Region Laterality Modality Chest Radiographic Rosa ging 02/06/2025 8:50 AM EDT Narrative 02/06/2025 9:47 [place] [address] XRay Report Signed Patient: Primitivo Ortez MR#: [id number] 37 : 1985 Acct:[id number] Age/Sex: 39 / M ADM Date: 02/06/25 Loc: .[facility] Attending Dr: Jose Pham MD Ordering Physician: Jose Pham MD Date of Service: 02/06/25 Procedure(s): XR chest 2V Accession Number(s): [id number] cc: Jose Pham MD EXAMINATION: XR CHEST CLINICAL INFORMATION: COUGH COMPARISON: None available. TECHNIQUE: 2 views of the chest were obtained. FINDINGS: The cardiac, hilar, and mediastinal contours are normal. The lungs are clear bilaterally. There is no pneumothorax or pleural effusion. There is no focal osseous or soft tissue abnormality. XR/XR chest 2V IMPRESSION: Normal chest. Electronically signed by: Eloy Coleman MD 02/06/2025 09:44 AM EDT RP Dictated By: Eloy Coleman MD Signed By: <Electronically signed by Eloy Coleman MD in OV> 02/06/25943 DD/ TD/TT: 02/06/2558 Processing Clerk: Procedure Note Donotlaceyinterpreter, Image - 02/06/[address] [address] XRay Report Signed Patient: Jalen Ortez#: [id number] 37 : 1985Acct:[id number] Age/Sex: 39 / MADM Date: 02/06/25 [facility] Dr: Jose Pham MD Ordering Physician: Jose Pham MD Date of Service: 02/06/25 Procedure(s): XR chest 2V Accession Number(s): [id number] cc: Jose Pham MD EXAMINATION: XR CHEST CLINICAL INFORMATION: COUGH COMPARISON: None available. TECHNIQUE: 2 views of the chest were obtained. FINDINGS: The cardiac, hilar, and mediastinal contours are normal. The lungs are clear bilaterally. There is no pneumothorax or pleural effusion. There is no focal osseous or soft tissue abnormality. XR/XR chest 2V IMPRESSION: Normal chest. Electronically signed by: Eloy Coleman MD 02/06/2025 09:44 AM EDT RP Dictated By: Eloy Coleman MD Signed By: <Electronically signed by Eloy Coleman MD in OV> 02/06/2544 DD/ TD/TT: 02/06/2558 Processing Clerk: Jose Pham MD IMG XR PROCEDURES Final Result documented in this encounter Visit Diagnoses Diagnosis Dermatophytosis- Primary Dermatophytosis of unspecified site Cough, unspecified type documented in this encounter Additional Health Concerns Assessment Noted Time PHQ-9 Depression Total Score: 0 06/07/20 23 9:12 AM EST documented as of this encounter Care Teams Residential Real Estate Agent Relationship Specialty Start Date End Date Maria Victoria Sprague NP [address] [place] [address] [place] [address] PCP - General Family Medicine 06/07/23 documented as of this encounter
--- OUTSIDE RECORDS SUMMARY | 2025-02-06 10:31 | XMS_ITS | Encounter Summary ---
Author Organization [employer] Address [address] [place] [address] Care Team Providers Care Noise Abatement Engineer Name Role Phone Maria Victoria Srpague NP Primary Care Provider [phone] Encounter Details Date Type Department Care Team ([facility] st Contact Info) Description 06/08/2023 Abstract [facility] [address] [place] [address] Maria Victoria Sprague NP [address] [place] [address] Social History Tobacco Use Types Packs/Day Years [...] AM EST documented as of this encounter Plan of Treatment Upcoming Encounters Date Type Department Care Team (Late st Contact Info) Description 03/31/2025 10:00 AM EDT Office Visit [facility] ADULT [facility]AL [address] [place] [address] Yimi Lindo 04/28/2025 9:00 AM EST Office Visit [facility] [address] [place] [address] Maria Victoria Sprague NP [address] [place] [address] documented as of this encounter Visit Diagnoses Not on filedocumented in this encounter Additional Health Concerns Assessment Noted Time PHQ-9 Depression Total Score: 0 06/07/20 9:12 AM EST documented as of this encounter Care Teams Noise Abatement Engineer Relationship Specialty Start Date End Date Maria Victoria Sprague NP [address] [place] [address] PCP - General Family Medicine 06/07/23 documented as of this encounter
--- OUTSIDE RECORDS SUMMARY | 2025-02-06 10:31 | XMS_ITS | Encounter Summary ---
Author Organization [employer] Address [address] [place] [address] Care Team Providers Care Store Consultant Name Role Phone Maria Victoria Sprague NP Primary Care Provider [phone] Encounter Details Date Type Department Care Team (Late st Contact Info) Description 06/22/2023 Abstract [facility] [address] [place] [address] Maria Victoria Sprague NP [address] [place] [address] Social History Tobacco Use Types Packs/Day Years [...] Description 03/31/2025 10:00 AM EDT Office Visit [facility]ENT[facility] [address] [place] [address] Yimi Lindo 04/28/2025 9:00 AM EST Office Visit [facility] [address] [place] [address] Maria Victoria Sprague NP [address] [place] [address] documented as of this encounter Visit Diagnoses Not on filedocumented in this encounter Additional Health Concerns Assessment Noted Time PHQ-9 Depression Total Score: 0 06/07/20 9:12 AM EST documented as of this encounter Care Teams Store Consultant Relationship Specialty Start Date End Date Maria Victoria Sprague NP [address] [place] [address] PCP - General Family Medicine 06/07/23 documented as of this encounter
--- OUTSIDE RECORDS SUMMARY | 2025-02-06 10:31 | XMS_ITS | Clinical Summary ---
Author Organization [employer] Address [address] [place] [address] Care Team Providers Care Personnel Consultant Name Role Phone Maria Victoria Sprague NP Primary Care Provider [phone] Allergies No known active allergies Medications Blood Pressure Monitoring (Omron 3 Series BP Monitor) device USE TO CHECK BLOOD PRESSURE TWICE DAILY 04/24/20 23 Active triamcinolone (Kenalog) 0.1 % cream Apply topically 2 times daily. 45 g 1 11/20/19 25 Active clotrimazole (Lotrimin) 1 % cream Apply topically 2 times daily. 30 g 1 11/20/19 25 Active nystatin (Mycostatin) creamIndication s:Dermatophytos is Apply topically 2 times daily for 7 days. 30 g 02/07/20 25 025 Active cetirizine (ZyrTEC) 10 MG tabletIndicatio ns:Cough, unspecified type Take 1 tablet (10 mg) by mouth if needed each day for allergies. 30 tablet 1 02/07/20 25 025 Active loratadine (Claritin) 10 MG tablet Take 1 tablet (10 mg) by mouth in the morning. 30 tablet 1 05/29/20 23 025 Discontinued Active Problems Problem Noted Date Diagnosed Date Elevated BP without diagnosis of hypertension Assessment & Plan (10/11/2023 10:13 AM EDT): -slightly elevated office BP reading of 134/79 mmHg -BP at target goal of <130/80 mmHg at home with reported SBP readings 118-120's -no medication necessary at this time -daily BP monitoring advised -low salt diet and 30 min moderate intensity daily exercise recommended -Reviewed ED precautions to include chest pain, shortness of breath, severe headache, sudden vision changes or BP >=180/>=120 mmHg. -Call clinic if three or more BP readings >140/90 mmHg. -mild ankle edema, advised elevation of leg at the end of the day -follow-up 6 months Class 1 obesity 06/07/2023 06/07/2023 Assessment & Plan (10/11/2023 10:09 AM EDT): -patient gained 3 lbs since our last visit -Healthy diet and exercise teaching completed: Eat a variety of fruit and vegetables, whole grains such as whole-wheat flour, bulgur (cracked wheat), oatmeal, and brown rice. Intake protein from beans, nuts, fish, and lean meats. Eat low-fat or fat- free dairy products. Limit highly processed foods such as hot dogs, sandwich meat, etc. -patient agrees to increase exercise regimen to minimum 3 times per week and cut down to 1 baguette per day -labs ordered to evaluate for secondary causes of obesity Assessment & Plan (06/07/2023 11:22 AM EST): -Healthy diet and exercise teaching completed: Eat a variety of fruit and vegetables, whole grains such as whole-wheat flour, bulgur (cracked wheat), oatmeal, and brown rice. Intake protein from beans, nuts, fish, and lean meats. Eat low-fat or fat- free dairy products. Limit highly processed foods such as hot dogs, sandwich meat, etc. Engage in minimum of 150 min of moderate intensity exercise weekly -lipids and A1c ordered Routine adult health maintenance 06/07/2023 Assessment & Plan (06/07/2023 11:27 AM EST): -BP stable at today's visit; continue daily monitoring at home. senthil intake reduction advised -will bring in immunization records -declined flu and COVID vax -Hepatitis and HIV screening completed -will call with lab abnormalities -follow-up in 3 months following cardiology appointment Impacted cerumen of right ear 06/07/2023 Assessment & Plan (06/07/2023 11:26 AM EST): -advised to clean ears daily with tip of towel after shower -Debrox rx sent to pharmacy Encounters Date Type Department Care Team Description 02/06/2025 9:00 AM EDT Office Visit [facility] [address] [place] [phone] Dermatophytosis (Primary Dx); Cough, unspecified type 02/06/2025 Travel 11/23/2024 Orders Only [facility] [address] [address] Greyson Slaughter MD Thrombocytopenia (CMS/HCC) (Primary Dx) 11/19/2024 9:20 AM EDT Office Visit [facility] [address] [address] Greyson Slaughter MD Rash (Primary Dx) 11/19/2024 Results Follow-Up [facility] [address] [place] [phone] Nathalie Rowan CNM CBC auto differential, Basic Metabolic Panel, Hemoglobin A1c, Additional followed-up results: 2 11/19/2024 Travel 11/18/2024 11:15 AM EDT Office Visit [facility] ADULT DENTAL [address] [place], [place] [phone] Lelia Abbasi DDS from Last 3 Months Immunizations Immunization Administration Dates Next Due Tdap 07/31/2022 Family History Medical History Relation Name Comments Diabetes Father No Known Problems Mother Relation Name Status Comments Father Mother Social History Tobacco Use Types Packs/Day Years Used Date Smoking Tobacco: Never Passive Smoke Exposure: Never Smokeless Tobacco: Never Tobacco Cessation:Counseling Given: Not Answered Alcohol Use Standard Drinks/Week Comments Never 0 [...] Orientation Straight 04/24/2023 9: 34 AM EST Last Filed Vital Signs Vital Sign Reading [...] Mass Index 31 02/06/2025 9:06 AM EDT Plan of Treatment Upcoming Encounters Date Type Department Care Team (Late st Contact Info) Description 03/31/2025 10:00 AM EDT Office Visit [facility] ADULT DENTAL [address] [place] [address] Yimi Lindo 04/28/2025 9:00 AM EST Office Visit [facility] [address] [place] [address] Maria Victoria Sprague NP [address] [place] [address] Health Maintenance Due Date Last Done Comments HIV Screening 1987 Disability Screening 1987 Alcohol/Substance Use Screening 1999 Family Planning (PISQ) 2002 HPV Vaccines (1 - Male 3-dos e series) 2002 Hepatitis C Screening 2005 Hepatitis B Vaccines (1 of 3 - 19+ 3-dose series) 2006 COVID-19 Vaccine (1 - 2023-2 5 season) 2024 Depression Screening 06/07/2024 06/07/2023, 06/07/2023 SDOH Screening 06/07/2024 06/07/2023 Dental Oral Exam 09/04/2024 03/06/2024 Influenza Vaccine (#1) 2025 Dental X-Ray: Bitewings 03/07/2025 03/06/2024 Dental Prophylaxis 03/29/2025 09/26/2024 Tobacco Screening 11/19/2025 11/19/2024 Dental X-Ray: Full Mouth 03/07/2027 03/06/2024 Lipid Panel 10/10/2028 10/11/2023 DTaP/Tdap/Td Vaccines (2 - T d or Tdap) 07/31/2032 07/31/2022 Zoster Vaccines (1 of 2) 2037 RSV Patients and Patients Aged 60 years or older (1 - 1-dose 75+ series) 2062 HIB Vaccines Aged Out No longer eligi ble based on patient's age to complete this topic Hepatitis A Vaccines Aged Out No long er eligible based on patient's age to complete this topic IPV Vaccines Aged Out No longer eligi ble based on patient's age to complete this topic Meningococcal B Vaccine Aged Out No l onger eligible based on patient's age to complete this topic Meningococcal Vaccine Aged Out No almita tawana eligible based on patient's age to complete this topic Pneumococcal Vaccine: Pediatrics (0 to 5 Years) and At-Risk Patients (6 to 49) Years Aged Out No longer eligible b ased on patient's age to complete this topic RSV under 20 months Aged Out No longe r eligible based on patient's age to complete this topic Rotavirus Vaccines Aged Out No longer eligible based on patient's age to complete this topic Procedures Procedure Name Priority Date/Time Associated Diagnosis [...] 02/06/2025 8:50 AM EDT Cough, unspecified type CT ABDOMEN PELVIS W CONTRAST Routine 12/14/2024 1:45 PM EDT LIPASE Routine 12/14/2024 12:25 PM EDT Thrombocytopenia (CMS/HCC) BASIC METABOLIC PANEL Routine 12/14/2024 12:25 PM EDT Thrombocytopenia (CMS/HCC) URINALYSIS WITH REFLEX MICROSCOPIC Routine 12/14/2024 12:25 PM EDT Thrombocytopenia (CMS/HCC) CBC WITH AUTO DIFFERENTIAL Routine 12/14/2024 12:25 PM EDT Thrombocytopenia (CMS/HCC) RPR (MONITOR) W/REFL TITER Routine 11/19/2024 9:36 AM EDT Rash VITAMIN B12 Routine 11/19/2024 9:34 AM EDT Rash HEMOGLOBIN A1C Routine 11/19/2024 9:34 AM EDT Rash BASIC METABOLIC PANEL Routine 11/19/2024 9:34 AM EDT Rash CBC WITH AUTO DIFFERENTIAL Routine 11/19/2024 9:34 AM EDT Rash LIMITED ORAL EVALUATION - PROBLEM FOCUSED Routine 11/18/2024 11:15 AM EDT 14 ROOT CANAL Routine 11/12/2024 12:00 AM EDT PROPHYLAXIS - ADULT Routine 09/26/2024 9 :00 AM EDT INTRAORAL - COMPLETE SERIES OF RADIOGRAPHIC IMAGES Routine 03/06/2024 8:00 AM EDT COMPREHENSIVE ORAL EVALUATION - NEW OR ESTABLISHED PATIENT Routine 03/06/2024 8:00 AM EDT LIPID PANEL, STANDARD Routine 10/11/2023 9:51 AM EDT Class 1 obesity from Last 3 Months or Most Recently Relevant to Health Maintenance Results * POCT Rapid Influenza B DIAZ ID NOW (02/06/2025 9:19 AM EDT) Influenza B Negative Negative, Indeterminate [facility] QC Media Lot # [id number] [facility] Lot# Expiration Date [facility] Swab 02/06/2025 9:19 AM EDT Jose Pham MD POINT OF CARE TEST ENTER/EDIT OR DERABLES Final Result Performing Organization Address [facility] Co de Phone Number [facility] [address] [place] [address] [phone] * POCT Rapid Influenza A DIAZ ID NOW (02/06/2025 9:18 AM EDT) Influenza A Negative Negative, Indeterminate [facility] QC Media Lot # [id number] [facility] Lot# Expiration Date [facility] Swab 02/06/2025 9:18 AM EDT Jose Pham MD POINT OF CARE TEST ENTER/EDIT OR DERABLES Final Result Performing Organization Address City/[facility]/ZIP Co de Phone Number [facility] [address] [place] [phone] * POCT Rapid Strep A DIAZ ID NOW (02/06/2025 9:10 AM EDT) [facility] Rapid Strep A Screen Negative Negative, None Detected QC Media Lot # [id number] Lot# Expiration Date [id number] Swab 02/06/2025 9:10 AM EDT Jose Pham MD POINT OF CARE TEST ENTER/EDIT OR DERABLES Final Result * POCT Rapid Covid-19 BinaxNOW (02/06/2025 9:09 AM EDT) [facility] Rapid COVID Ag Negative QC Media Lot # [id number] Lot# Expiration Date [id number] Swab 02/06/2025 9:09 AM EDT Jose Pham MD POINT OF CARE TEST ENTER/EDIT OR DERABLES Final Result * XR Chest 2 Views (02/06/2025 8:50 AM EDT) Anatomical Region Laterality Modality Chest Radiographic Rosa ging 02/06/2025 8:50 AM EDT Narrative 02/06/2025 9:47 [place] [address] XRay Report Signed Patient: Primitivo Ortez MR#: [id number] 37 : 1985 Acct:[id number] Age/Sex: 39 / M ADM Date: 02/06/25 Loc: HO.HHCX Attending Dr: Jose Pham MD Ordering Physician: Jose Pham MD Date of Service: 02/06/25 Procedure(s): XR chest 2V Accession Number(s): [id number] cc: Jose Phma MD EXAMINATION: XR CHEST CLINICAL INFORMATION: COUGH [...] Coleman MD in OV> 02/06/2544 DD/ TD/TT: 02/06/25857 Pig Farmer: Procedure Note Donotuseinterpreter, Image - 02/06/[address] [address] XRay Report Signed Patient: Jalen Ortez#: [id number] 37 : 1985Acct:[id number] Age/Sex: 39 / MADM Date: 02/06/25 Loc: HO.HHCX Attending Dr: Jose Pham MD Ordering Physician: Jose Pham MD Date of Service: 02/06/25 Procedure(s): XR chest 2V Accession Number(s): [id number] cc: Jose Pham MD EXAMINATION: XR CHEST [...] Coleman MD in OV> 02/06/2544 DD/ TD/TT: 02/06/25857 [employer]: Jose Pham MD IMG XR PROCEDURES Final Result * CT Abdomen Pelvis w/ Contrast (12/14/2024 1:45 PM EDT) Anatomical Region Laterality Modality Body, Pelvis, Abdomen Computed T omography 12/14/2024 1:45 PM EDT Narrative 12/14/2024 1:46 PM EDT [address] [address] [address] Scan Report Signed Patient: Primitivo Ortez MR#: [id number] 37 : 1985 Acct:[id number] Age/Sex: 39 / M ADM Date: 12/14/24 Loc: HO.ED Attending Dr: Ordering Physician: Ludy Knutson NP Date of Service: 12/14/24 Procedure(s): CT abdomen pelvis w IV con Accession Number(s): [id number] cc: [facility]; Ludy Knutson NP Report Number: [id number]: Total DLP = 770.00 mGy-cm CLINICAL HISTORY: RLQ tenderness CT abdomen and pelvis with contrast Comparison: None provided Findings: The lung bases are clear. The liver, gallbladder, spleen, splenule, adrenal glands and pancreas are unremarkable. Kidneys, ureters and bladder are within normal limits. Small benign renal cysts are present. The appendix is normal. No bowel obstruction, free air, free fluid or abscess. Mild fecal retention. No acute osseous finding. Impression: Normal appendix. No definite acute process. This document has been electronically signed by: David Styles MD on 12/14/2024 13:45:43 Dictated By: David Styles MD Signed By: <Electronically signed by David Styles MD in OV> 12/14/24 1346 DD/ 1345 TD/TT: 12/14/24 1345 Pig Farmer: Procedure Note Donotuseinterpreter, Image - 12/14/[address] [address] [address] Scan Report Signed Patient: Primitivo OrtezMR#: [id number] 37 : 1985Acct:[id number] Age/Sex: 39 / MADM Date: 12/14/24 Loc: HO.ED Attending Dr: Ordering Physician: Ludy Knutson NP Date of Service: 12/14/24 Procedure(s): CT abdomen pelvis w IV con Accession Number(s): [id number] cc: [facility]; Ludy Knutson [employer] Report Number: [id number]: Total DLP = 770.00 mGy-cm CLINICAL HISTORY: RLQ tenderness CT abdomen and pelvis with contrast Comparison: None provided Findings: The lung bases are clear. The liver, gallbladder, spleen, splenule, adrenal glands and pancreas are unremarkable. Kidneys, ureters and bladder are within normal limits. Small benign renal cysts are present. The appendix is normal. No bowel obstruction, free air, free fluid or abscess. Mild fecal retention. No acute osseous finding. Impression: Normal appendix. No definite acute process. This document has been electronically signed by: David Styles MD on 12/14/2024 13:45:43 Dictated By: David Styles MD Signed By: <Electronically signed by David Styles MD in OV> 12/14/24 1346 DD/ 1345 TD/TT: 12/14/24 1345 Pig Farmer: [facility] External Provider IMG CT PROCEDURES Edited Result - Final * (ABNORMAL) CBC auto differential (12/14/2024 12:25 PM EDT) Only the most recent of2 resultswithin the time period is included. White Blood Count 5.2 4.8 - 10.8 X10*3/uL [facility] Red Blood Count 5.20 4.60 - 5.80 X10*6/uL [facility] Hemoglobin 15.4 14.0 - 18.0 g/dl [facility] Hematocrit 44.3 42.0 - 52.0 % [facility] Mean Corpuscular Volume 85.2 80.0 - 98.0 fL [facility] Mean Corpuscular Hemoglobin 29.6 27.0 - 33.0 pg [facility] Mean Corpuscular HGB Conc 34.8 31.0 - 36.0 g/dl [facility] Red Cell Distribution Width 12.2 11.0 - 16.0 % [facility] Platelet Count 123(L) 160 - 400 X10*3/uL [facility] Mean Platelet Volume 11.8 9.4 - 12.4 fL [facility] Neutrophils Percent Auto 63.8 45 - 73 % [facility] Imm Gran Pct Auto 0.2 0.0 - 0.4 % [facility] Lymphocytes Percent Auto 28.5 20 - 40 % [facility] Monocytes Percent Auto 5.4 2 - 11 % [facility] Eosinophils Percent Auto 1.7 0 - 4 % [facility] Basophils Percent Auto 0.4 0 - 2 % [facility] NRBC Pct Auto 0.0 0.0 - 0.2 /100WBC [facility] Neutrophils Absolute Auto 3.3 2.0 - 8.3 x10*3/uL [facility] Imm Gran Abs Auto 0.01 0.00 - 0.03 X10*3/uL [facility] Lymphocytes Absolute Auto 1.5 1.2 - 4.9 X10*3/uL [facility] Monocytes Absolute Auto 0.3 0.1 - 1.2 X10*3/uL [facility] Eosinophils Absolute Auto 0.1 0.0 - 0.4 X10*3/uL [facility] Basophils Absolute Auto 0.0 0.0 - 0.2 X10*3/uL [facility] NRBC Abs Auto 0.000 0.0 - 0.012 X10*3/uL [facility] 12/14/2024 12:2 5 PM EDT 12/14/2024 12:29 PM EDT us Generic External Data Provider LAB BLOOD ORDERAB LES Final Result [facility] [address] [place] [phone] [phone] * Urinalysis w/reflex microscopic (12/14/2024 12:25 PM EDT) Color Urine Yellow [facility] Appearance Urine Clear [facility] PH 5.5 5.0 - 9.0 [facility] Glucose Urine UA Negative Negative mg/dL [facility] Urine Blood Negative Negative [facility] Specific [place] - Urine 1.025 1.005 - 1.025 [facility] Urine Protein Negative Neg-Trace mg/dL [facility] Urine Ketones Trace Negative mg/dL [facility] Nitrite Urine Negative Negative [facility] Leukocyte Esterase Urine Negative Negative [facility] 12/14/2024 12:2 5 PM EDT 12/14/2024 12:29 PM EDT Narrative [facility] - 12/14/2024 12:34 PM EDT Urine, Clean Catch us Generic External Data Provider LAB URINE ORDERAB LES Final Result Performing Organization Address City/[facility]/ZIP Co de Phone Number [facility] [address] [place] [phone] * Lipase (12/14/2024 12:25 PM EDT) Lipase 15 8 - 78 U/L [facility] 12/14/2024 12:2 5 PM EDT 12/14/2024 12:29 PM EDT us Generic External Data Provider LAB BLOOD ORDERAB LES Final Result Performing Organization Address City/[facility] Co de Phone Number [facility] [address] [place] [phone] * Basic Metabolic Panel (12/14/2024 12:25 PM EDT) Only the most recent of2 resultswithin the time period is included. Sodium 141 135 - 145 mmol/L [facility] Potassium 4.3 3.3 - 5.1 mmol/L [facility] Chloride 108 96 - 108 mmol/L [facility] Carbon Dioxide 25 22 - 29 mmol/L [facility] Anion Gap 12 12 - 20 [facility] Urea Nitrogen (BUN) 11 9 - 16 mg/dL [facility] Creatinine, Serum 0.84 0.5 - 1.4 mg/dL [facility] Creatinine Clr Calc Pharmacy 161.0 [facility] Comment:eGFR (calculated fro m the MDRD study equation) and eCrCl(calculated from the Cockcroft-Gault equation) are based ondifferent parameters and may not yield comparable results.If eCrCl result is absurd, please check patient'sheight/weight. Estimated Glomerular Filt Rate >60 [facility] Comment:Chronic Kidney Disea se: Estimated GFR < 60 mL/min/[id number] Kidney Disease: Estimated GFR < 15 mL/min/1.73m2 Glucose 99 60 - 115 mg/dL [facility] Calcium 9.0 8.4 - 10.2 mg/dL [facility] 12/14/2024 12:2 5 PM EDT 12/14/2024 12:29 PM EDT us Generic External Data Provider LAB BLOOD ORDERAB LES Final Result Performing Organization Address City/[facility]/ZIP Co de Phone Number [facility] [address] [place] [phone] * RPR (Monitor) with Reflex to??Titer (11/19/2024 9:36 AM EDT) RPR (Monitor) w/Refl Titer NON-REACTI VE NON-REACT MADIHA [facility] Comment:THIS TEST WAS PERFOR MED AT:[facility] [place] [phone] COKER MD Rapid Plasma Reagin Ab Titer TNP [facility] Blood Venous blood specimen / Unknown 11/19/2024 9:36 AM EDT 11/19/2024 11:16 AM EDT us Greyson Slaughter MD LAB BLOOD ORDERABLES Final Resul t Performing Organization Address City/[facility]/ZIP Co de Phone Number [facility] [address] [place] [phone] * Hemoglobin A1c (11/19/2024 9:34 AM EDT) Hemoglobin A1c 5.6 <6.0 % [facility] Comment:Hemoglobin A1C Refer ence Range Adults: 4.8 - 6.0 % Non diabetic: < 6.0 % Goal: < 7.0 %Additional Action Suggested: > 8.0 %Note: Hemoglobin A1c results are invalid for patients with abnormal amounts of HbF. Blood transfusions may impact the HbA1c concentration in the patient sample. Estimated Average Glucose 114 mg/dL [facility] Comment:eAG = Estimated ave rage glucose which is %A1C expressed asaverage glucose, using the formula of the [id number] Glucose study (ADAG), Diabetes Care, Vol.31,#8,2007 Blood Venous blood specimen / Unknown 11/19/2024 9:34 AM EDT 11/19/2024 11:16 AM EDT us Greyson Slaughter MD LAB BLOOD ORDERABLES Final Resul t Performing Organization Address City/[facility]/ZIP Co de Phone Number [facility] [address] [place] [phone] * (ABNORMAL) Vitamin B12 (11/19/2024 9:34 AM EDT) Vitamin B12 992(H) 200 - 900 pg/mL [facility] Comment:NORMAL 200-900 PG/ML INDETERMINATE 160-199 PG/ML DEFICIENT < 160 PG/ML Blood Venous blood specimen / Unknown 11/19/2024 9:34 AM EDT 11/19/2024 11:16 AM EDT us Greyson Slaughter MD LAB BLOOD ORDERABLES Final Resul t Performing Organization Address City/[facility]/ZIP Co de Phone Number [facility] [address] [place] [phone] * (ABNORMAL) Lipid Panel, Standard (10/11/2023 9:51 AM EDT) Triglycerides 78 <150 mg/dL [facility] Comment:Desirable Triglyceri de: less than 150 mg/dLBorderline High Triglyceride 150-199 mg/dLHigh Triglyceride: 200-499 mg/dLVery High Triglyceride: greater than or equal to 5OO mg/dL Cholesterol 152 <200 mg/dL [facility] Comment:Desirable Cholestero l: less than 200 mg/dLBorderline High Cholesterol: 200-239 mg/dLHigh Cholesterol: greater than 239 mg/dL LDL Cholesterol Calculated 97 <100 mg/dL [facility] Comment:Desirable LDL: less than 100 mg/dLNear Optimal/Above Optimal LDL: 110- 129 mg/dLBorderline High LDL: 130-159 mg/dLHigh LDL: 160-189 mg/dLVery High LDL: greater than or equal to 190 mg/dL HDL Cholesterol 40(L) >40 mg/dL [facility] Comment:Desirable HDL: great er than 40 mg/dL Note: This HDL assay may give artificially low results in patients with liver disease. Blood Venous blood specimen / Unknown 10/11/2023 9:51 AM EDT 10/11/2023 11:26 AM EDT Maria Victoria Sprague NP LAB BLOOD ORDERABLES Final Resu lt [facility] [address] [place] [phone] from Last 3 Months or Most Recently Relevant to Health Maintenance Insurance [facility] Member Subscriber Plan / Payer (Ef fective 2023-Present) Name:Primitivo Ortez Relation to Subscriber:Self Name:Primitivo Ortez Payer ID:Not on file Group ID:Not on file Type:Medicaid Address: [facility] [id number] [place] [phone] [place] [address] , [address] [place] [address] [place] ST[place] AD[place] Care Teams Personnel Consultant Relationship Specialty Start Date End Date Maria Victoria Sprague NP [address] [place] [phone] PCP - General Family Medicine 06/07/23
--- OUTSIDE RECORDS SUMMARY | 2025-02-06 10:31 | XMS_ITS | Encounter Summary ---
Author Organization [employer] Address [address] [place] [address] Care Team Providers Care Telemarketing Representative Name Role Phone Maria Victoria Sprague NP Primary Care Provider [phone] Encounter Details Date Type Department Care Team (Latest Contact Info) Description 02/06/2025 Travel Social History Tobacco Use Types Packs/Day Years [...] Description 03/31/2025 10:00 AM EDT Office Visit [facility]ULT [facility] [address] [place] [address] Yimi Lindo 04/28/2025 9:00 AM EST Office Visit [facility] MEDICINE [address] [place] [address] Maria Victoria Sprague NP [address] [place] [address] documented as of this encounter Visit Diagnoses Not on filedocumented in this encounter Additional Health Concerns Assessment Noted Time PHQ-9 Depression Total Score: 0 06/07/20 9:12 AM EST documented as of this encounter Care Teams Telemarketing Representative Relationship Specialty Start Date End Date Maria Victoria Sprague NP [address] [place] [address] PCP - General Family Medicine 06/07/23 documented as of this encounter
== END 2025-02-06 09:28 | disposition home or self-care (01) ==
LOC: HO.HHCX 09:27
PROVIDERS: Visit Provider Family Medicine
DX: R05.9 Cough, unspecified (principal)
CPT/HCPCS: 71046

== ENCOUNTER → 2025-02-06 09:30 | Outpatient (BNV) | payer OTHER, MEDICAID, SELFPAY | PROVIDERS: Visit Provider Radiology Diagnostic Radiology | DX: R05.9 Cough, unspecified (principal) | CPT/HCPCS: 71046 ==